=== PATIENT | female | born 1945 | race Caucasian/White ===

== ENCOUNTER 2018-03-30 21:29 | Emergency (ER) | payer MEDICARE, OTHER, SELFPAY ==
[2018-03-30 21:38] VITALS: BP 184/96; PULSE 75; RESP 17; O2SAT 100
--- NOTE | 2018-03-30 21:40 | DI.RAD.S_ITS ---
PROCEDURE: XR CHEST 1V INDICATIONS: chest pain TECHNIQUE: One view of the chest was acquired. COMPARISON: None. FINDINGS: Surgical changes and devices: Surgical clips projecting at the left base of neck.. Lungs and pleura: No pleural effusions or pneumothorax. Scattered scarring/atelectasis. No acute consolidation.. Mediastinum: Mediastinal contours appear normal. Heart size is normal. Bones and chest wall: No suspicious bony lesions. Overlying soft tissues appear unremarkable. Dextroscoliosis centered at the L1 level. IMPRESSION: No acute disease. Mild scattered scarring/atelectasis Dictated by: Alexandro Gu M.D. on 03/30/2018 at 22:07 Approved by: Alexandro Gu M.D. on 03/30/2018 at 22:09
--- NOTE | 2018-03-30 21:52 | ED_ITS ---
HPI - Chest Pain General Chief Complaint: Chest Pain Stated Complaint: CHEST PAIN AND TINGLING RIGHT ARM Time Seen by Provider: 03/30/18 21:51 Source: patient Mode of arrival: ambulatory Limitations: no limitations History of Present Illness HPI narrative: The patient was on her boat, cleaning about 50 min prior to arrival. She developed substernal chest pain radiating to the right arm. There is no associated dyspnea, weakness or dizziness. The pain is 5/10 on a 1- 10 scale. She has had similar prior symptoms, she has a prior AR with blockage of the circumflex artery. She underwent catheterization and the vessel was opened with a stent. She takes Plavix, she is on Lopressor for hypertension. She has no history of diabetes, hyperlipidemia, and she is a nonsmoker. Her father has a history of CAD. She has no recent illness. She has no cough or dyspnea. Current discomfort is very similar to the event when she had the AR. Related Data Home Medications Medication Instructions Recorded Confirmed CALCIUM CITRATE/VITAMIN D3 (Gnp 2 tab PO Q DAY #0 10/21/12 Calcium Citrate-Vit D Tab) aspirin 81 mg PO QDAY #0 03/23/17 Previous Rx's Medication Instructions Recorded Clopidogrel Hydrogen Sulfate 75 mg PO QDAY #90 10/21/12 (PLAVIX) metoprolol tartrate 25 mg PO BID #180 01/29/13 cyclobenzaprine 5 mg PO Q6HP PRN #30 tab 03/23/17 Allergies Allergy/AdvReac Type Severity Reaction Status Date / Time No Known Drug Allergies Allergy Verified 03/30/18 23:39 Review of Systems Review of Systems All systems reviewed & are unremarkable except as noted in HPI and below Constitutional Reports as per HPI, Denies chills, Denies fatigue, Denies fever(s), Denies frequent falls and Denies malaise ENT Ears, Nose, Mouth, and Throat: Denies change in voice, Denies dizziness and Denies sore throat Cardiovascular Reports chest pain with activity, Denies irregular heart rhythm, Denies lightheadedness, Denies palpitations, Denies dyspnea and Denies orthopnea Respiratory Denies cough, Denies dyspnea and Denies wheezing Gastrointestinal Gastrointestinal: Denies abdominal pain, Denies change in bowel habits, Denies diarrhea, Denies nausea and Denies vomiting Musculoskeletal Denies back pain and Denies numbness Integumentary/Breasts Denies erythema and Denies rash Neurologic Denies behavioral changes, Denies confusion, Denies dizziness, Denies frequent falls and Denies numbness Psychiatric Denies behavioral changes and Denies confusion Endocrine Denies fatigue and Denies palpitations Allergic/Immunologic Denies wheezing PFSH Medical History CAD (coronary artery disease) of artery bypass graft (Acute) Fibromuscular dysplasia (Acute) Hypertension (Acute) Surgical History H/O cardiac catheterization (Acute) Social History Smoking Status: Never smoker Exam Initial Vital Signs Initial Vital Signs: Vital Signs Pulse Rate 75 03/30/18 21:38 Respiratory Rate 17 03/30/18 21:38 Blood Pressure 184/96 H 03/30/18 21:38 Pulse Oximetry 100 03/30/18 21:38 Const General: cooperative, healthy appearing and well developed Nutritional Appearance: well nourished Orientation: alert, awake, oriented x3 and not confused HENMT Head: normocephalic and atraumatic Mouth: oral mucosae normal and moist mucous membranes Throat: posterior oropharynx normal Eyes General: appearance normal, both eyes and all related structures Eyelids: eyelids normal Conjunctivae: conjunctivae normal Sclera: sclerae normal Pupils: PERRL EOM: EOM intact bilaterally Neck Neck: No JVD Chest Chest: No tenderness Resp Effort & Inspection: normal respiratory effort, able to speak in complete sentences, no respiratory distress and no use of accessory muscles Auscultation: clear to auscultation bilaterally, no rales, no rhonchi and no wheezes Cardio Rate: regular rate Rhythm: regular rhythm Heart Sounds: no click, no gallops, no murmurs and no rubs Pulses: normal peripheral pulses GI Inspection: non-distended Palpation: soft, no hepatosplenomegaly, No guarding, No pulsatile mass and No tender Auscultation: normal bowel sounds Back/Spine/Pelvis Back: No CVA tenderness Skin General: no rashes or lesions noted, No jaundice and No petechiae Neuro General: alert, oriented x3, gait normal and no focal motor deficits Speech: speech normal Extrem General: no clubbing, cyanosis or edema and no calf tenderness Course Hospital Course: The patient's initial chest discomfort improved after receiving topical nitroglycerin and the 1st dose of metoprolol. The pain never quite resolved until she received Morphine. The initial EKG showed nonspecific changes, perhaps flipped ST segments in the inferior leads. The chest discomfort would wax and wane, but was very minor. Due to the ongoing back discomfort labs and EKG were repeated. The 2nd EKG is unchanged, showing flipped ST segments in III and AVF, but no obvious acute ST elevations. However the 2nd troponin is positive, increasing from < 0.012 to 0.375. At this moment she is once again pain-free. Heparin bolus and heparin drip have been added to the treatment regimen. I discussed her care with Dr. Abdul, the on-call systems management consultant at [facility]. He agreed with our management, he wants the patient transported to [facility] under the care of the hospitalist. He anticipates cardiac catheterization in the morning if all goes well. Orders Ordered: ED Orders 03/30/18 21:38 Complete Blood Count AUTO DIFF Stat Comprehensive Metabolic Panel Stat Lipase Stat Troponin & CK Cardiac Panel Stat 03/30/18 21:40 XR chest 1V Stat EKG-12 Lead Stat 03/30/18 23:26 EKG-12 Lead Stat 03/30/18 23:52 Troponin I Stat 03/31/18 01:40 Partial Thromboplastin Time Stat Prothrombin Time INR Stat Sodium Chloride (Normal Saline 0.9%) 1,000 mls @ 150 mls/hr IV CONT PRISCILLA Last Admin: 03/30/18 22:18 Dose: 150 mls/hr Admin: 03/30/18 22:04 Dose: Sodium Chloride (Normal Saline 0.9%) 1,000 mls @ 150 mls/hr IV CONT PRISCILLA Last Admin: 03/30/18 22:19 Dose: Heparin Sodium/Dextrose (Heparin Drip) 25,000 unit in 500 mls @ 13.281 mls/hr IV CONT PRISCILLA; Protocol Last Infusion: 03/31/18 03:42 Dose: 12.64 units/kg/hr, 14 mls/hr Infusion: 03/31/18 02:40 Dose: 0 units/kg/hr, 0 mls/hr Admin: 03/31/18 01:28 Dose: 18.07 units/kg/hr, 20 mls/hr Discontinued Medications Aspirin (Aspirin Chew) 324 mg PO NOW ONE Stop: 03/30/18 21:41 Last Admin: 03/30/18 21:57 Dose: Aspirin (Aspirin Chew) 324 mg PO NOW ONE Stop: 03/31/18 01:01 Last Admin: 03/31/18 01:07 Dose: 324 mg Heparin Sodium (Porcine) (Heparin) 4,000 unit IV NOW ONE Stop: 03/31/18 00:59 Last Admin: 03/31/18 01:07 Dose: 4,000 unit Metoprolol Tartrate (Lopressor) 5 mg IV NOW ONE Stop: 03/30/18 22:01 Last Admin: 03/30/18 22:19 Dose: Metoprolol Tartrate (Lopressor) 5 mg IV Q5M PRISCILLA Stop: 03/30/18 22:26 Last Admin: 03/30/18 22:33 Dose: Admin: 03/30/18 22:28 Dose: Admin: 03/30/18 22:19 Dose: 5 mg Metoprolol Tartrate (Lopressor) 5 mg IV NOW ONE Stop: 03/31/18 00:01 Last Admin: 03/31/18 00:01 Dose: 5 mg Metoprolol Tartrate (Lopressor) 5 mg IV NOW ONE Stop: 03/31/18 00:19 Last Admin: 03/31/18 00:19 Dose: 5 mg Morphine Sulfate (Morphine) 2 mg IV NOW ONE Stop: 03/30/18 23:27 Last Admin: 03/30/18 23:39 Dose: 2 mg Nitroglycerin (Nitro-Bid) 1 inch TOP NOW ONE Stop: 03/30/18 22:01 Last Admin: 03/30/18 22:19 Dose: 1 inch Vital Signs - 8 hr 03/30/18 21:38 03/30/18 22:27 03/30/18 23:45 Pulse Rate 75 60 67 Respiratory Rate 17 19 Blood Pressure 184/96 H 158/88 H Blood Pressure [Left Arm] 137/76 H Pulse Oximetry 100 98 03/31/18 00:09 03/31/18 01:22 03/31/18 01:23 Pulse Rate 61 65 65 Respiratory Rate 15 19 19 Blood Pressure 158/88 H Blood Pressure [Left Arm] 125/68 H 140/76 H Pulse Oximetry 97 99 99 03/31/18 02:11 03/31/18 03:55 Pulse Rate 63 66 Respiratory Rate 14 18 Blood Pressure Blood Pressure [Left Arm] 95/75 150/99 H Pulse Oximetry 96 95 MDM - Chest Pain Medical Records Data Attestation: I reviewed the patient's medical records. Lab Data Attestation: I reviewed the patient's lab results. Result diagrams: 03/30/18 21:38 03/30/18 21:38 Lab Results 03/30/18 03/30/18 03/30/18 Range/Units 21:38 21:38 23:52 WBC 5.9 (4.5-11.0) X10^3/uL RBC 4.62 (4.0-5.2) X10^6/uL Hgb 14.2 (12.0-16.0) g/dL Hct 41.7 (36-46) % MCV 90.3 (80-100) fL MCH 30.7 (26-34) PG MCHC 34.1 (30-36) % RDW 13.5 (11.6-14.8) % Plt Count 110 L (150-400) X10^3/uL Neut % (Auto) 39.2 L (50-75) % Lymph % (Auto) 40.7 H (25-40) % [place] % (Auto) 19.0 H (3-14) % Eos % (Auto) 0.4 L (2-4) % Baso % (Auto) 0.7 (0-2) % Neut # (Auto) 2300 L (9255-4043) /uL PT (10.1-12.7) SECONDS INR (0.9-1.3) APTT (26.4-36.2) SECONDS Sodium 141 (137-145) mmol/L Potassium 3.0 L (3.4-5.1) mmol/L Chloride 98 (98-107) mmol/L Carbon Dioxide 30 (22-32) mmol/L BUN 21 H (7-17) mg/dL Creatinine 0.80 (0.52-1.04) mg/dL Estimated GFR > 60.0 (>60) mL/min BUN/Creatinine Ratio 26.3 H (6-22) Glucose 106 (80-110) mg/dL Calcium 9.8 (8.4-10.2) mg/dL Total Bilirubin 0.7 (0.2-1.3) mg/dL AST 34 (14-36) IU/L ALT 28 (9-52) IU/L Alkaline Phosphatase 88 (38-126) U/L Total Creatine Kinase 68 (30-135) U/L Troponin I < 0.012 0.375 H* (0.01-0.034) ng/mL Total Protein 8.0 (6.3-8.2) g/dL Albumin 5.0 (3.5-5.0) g/dL Globulin 3.0 (1.7-4.1) g/dL Albumin/Globulin Ratio 1.7 (1.0-2.8) Lipase 92 (23-300) U/L 03/31/18 Range/Units 01:40 WBC (4.5-11.0) X10^3/uL RBC (4.0-5.2) X10^6/uL Hgb (12.0-16.0) g/dL Hct (36-46) % MCV (80-100) fL MCH (26-34) PG MCHC (30-36) % RDW (11.6-14.8) % Plt Count (150-400) X10^3/uL Neut % (Auto) (50-75) % Lymph % (Auto) (25-40) % [place] % (Auto) (3-14) % Eos % (Auto) (2-4) % Baso % (Auto) (0-2) % Neut # (Auto) (3144-7634) /uL PT 12.4 (10.1-12.7) SECONDS INR 1.1 (0.9-1.3) APTT 220 H* (26.4-36.2) SECONDS Sodium (137-145) mmol/L Potassium (3.4-5.1) mmol/L Chloride (98-107) mmol/L Carbon Dioxide (22-32) mmol/L BUN (7-17) mg/dL Creatinine (0.52-1.04) mg/dL Estimated GFR (>60) mL/min BUN/Creatinine Ratio (6-22) Glucose (80-110) mg/dL Calcium (8.4-10.2) mg/dL Total Bilirubin (0.2-1.3) mg/dL AST (14-36) IU/L ALT (9-52) IU/L Alkaline Phosphatase (38-126) U/L Total Creatine Kinase (30-135) U/L Troponin I (0.01-0.034) ng/mL Total Protein (6.3-8.2) g/dL Albumin (3.5-5.0) g/dL Globulin (1.7-4.1) g/dL Albumin/Globulin Ratio (1.0-2.8) Lipase (23-300) U/L Imaging Data Chest x-ray: Radiologist's impression: Scattered scarring/atelectasis, no acute findings. ECG Data Attestation: I personally reviewed and interpreted this ECG as follows: (EKG: Normal sinus rhythm at [address] depression in 3 and AVF. No acute ST elevation.) Critical Care Time Critical Care Time: Yes Total Critical Care Time: 40 Attestation: In addition to the initial patient care, repeat evaluations were performed. Repeat testing including EKG and lab testing was done and evaluated. Multiple medication decisions were made in the course for treatment. I consulted both Cardiology, Dr. Abdul, and [facility] hospitalist, Dr. Ching. The patient will be transferred later this morning. Discharge Plan Departure Patient Disposition: [facility] Clinical Impression: Non-ST elevated myocardial infarction (non-STEMI) Prescriptions: No Action CALCIUM CITRATE/VITAMIN D3 (Gnp Calcium Citrate-Vit D Tab) 2 tab PO Q DAY Qty: 0 RF: 0 Clopidogrel Hydrogen Sulfate (PLAVIX) 75 mg PO QDAY Qty: 90 RF: 3 metoprolol tartrate 25 MG tablet 25 mg PO BID Qty: 180 RF: 2 aspirin 81 MG tablet,chewable 81 mg PO QDAY Qty: 0 RF: 0 cyclobenzaprine 5 MG tablet 5 mg PO Q6HP PRNQty: 30 RF: 1
[2018-03-30 21:56] LABS: Add Manual Diff / Slide Review NO; Basophils Percent Auto 0.7 % (0-2); Eosinophils Percent Auto 0.4 % (2-4); Hematocrit 41.7 % (36-46); Hemoglobin 14.2 g/dL (12.0-16.0); Lymphocytes Percent Auto 40.7 % (25-40); Mean Corpuscular HGB Conc 34.1 % (30-36); Mean Corpuscular Hemoglobin 30.7 PG (26-34); Mean Corpuscular Volume 90.3 fL (80-100); Neutrophils Absolute Auto 2300 /uL (3000-5900); Neutrophils Percent Auto 39.2 % (50-75); Platelet Count 110 X10^3/uL (150-400); Red Blood Cell Count 4.62 X10^6/uL (4.0-5.2); Red Cell Distribution Width 13.5 % (11.6-14.8); White Blood Cell Count 5.9 X10^3/uL (4.5-11.0)
[2018-03-30 22:01] LABS: Alanine Aminotransferase 28 IU/L (9-52); Albumin Globulin Ratio 1.7 (1.0-2.8); Alkaline Phosphatase 88 U/L (38-126); Aspartate Aminotransferase 34 IU/L (14-36); BUN Creatinine Ratio 26.3 (6-22); Bilirubin Total 0.7 mg/dL (0.2-1.3); Blood Urea Nitrogen 21 mg/dL (7-17); Calcium 9.8 mg/dL (8.4-10.2); Carbon Dioxide 30 mmol/L (22-32); Chloride 98 mmol/L (98-107); Creatine Kinase 68 U/L (30-135); Estimated Glomerular Filt Rate > 60.0 mL/min (>60); Glucose 106 mg/dL (80-110); HEMOLYSIS < 15 (0-50); Lipase 92 U/L (23-300); Sodium 141 mmol/L (137-145)
[2018-03-30 22:16] LABS: Troponin I < 0.012 ng/mL (0.01-0.034)
[2018-03-30] MEDS: SODIUM CHLORIDE 0.9% 1,000 ML 150 ML IV (22:18)
[2018-03-30] MEDS: METOPROLOL TARTRATE 5 MG/5 ML INJ IV (22:19)
[2018-03-30] MEDS: NITROGLYCERIN OINT 1 INCH/GM OINT...G. TOP (22:19)
[2018-03-30 22:27] VITALS: BP 158/88; PULSE 60
--- NOTE | 2018-03-30 22:28 | PC.NURSE ---
pts HR 60 per provider second dose of metoprolol not given.
[2018-03-30] MEDS: MORPHINE 2 MG/ML INJ IV (23:39)
[2018-03-30 23:45] VITALS: BP 137/76; PULSE 67; RESP 19; O2SAT 98
[2018-03-31] MEDS: METOPROLOL TARTRATE 5 MG/5 ML INJ IV ×2 (00:01→00:19)
[2018-03-31 00:09] VITALS: BP 125/68; PULSE 61; RESP 15; O2SAT 97
[2018-03-31 00:55] LABS: Troponin I 0.375 ng/mL (0.01-0.034)
[2018-03-31] MEDS: ASPIRIN 81 MG TAB 324 MG PO (01:07)
[2018-03-31] MEDS: HEPARIN 5,000 UNIT/ML VIAL 4000 UNIT IV (01:07)
[2018-03-31 01:22] VITALS: BP 140/76; PULSE 65; RESP 19; O2SAT 99
[2018-03-31 01:23] VITALS: BP 158/88; PULSE 65; RESP 19; O2SAT 99
[2018-03-31] MEDS: HEPARIN DRIP 25,000 UNIT/500 ML IV.SOLN 20 UNIT IV (01:28)
[2018-03-31 01:58] LABS: INR 1.1 (0.9-1.3)
[2018-03-31 02:11] VITALS: BP 95/75; PULSE 63; RESP 14; O2SAT 96
[2018-03-31 02:19] LABS: Prothrombin Time 12.4 SECONDS (10.1-12.7)
--- NOTE | 2018-03-31 02:19 | PC.NURSE ---
Pt with [address] Snyder notified- no new orders. Pt asymptomatic. BP stable.
[2018-03-31 02:29] LABS: PTT Partial Thromboplastin Tim 220 SECONDS (26.4-36.2)
--- NOTE | 2018-03-31 02:42 | PC.NURSE ---
PTT critical at 220. Dr Snyder notified, Heparin gtt stopped per protocol.
[2018-03-31 03:55] VITALS: BP 150/99; PULSE 66; RESP 18; O2SAT 95
[2018-03-31 04:17] VITALS: BP 141/75; PULSE 65; RESP 15; O2SAT 95
--- NOTE | 2018-03-31 04:49 | PC.NURSE ---
Report called to MEGAN Guajardo at [facility] [phone]
== END 2018-03-31 04:20 | disposition short-term general hospital (02) ==
PROVIDERS: Emergency Provider Emergency Medicine; Family Provider Family Medicine; PCP Family Medicine
DX: I21.4 Non-ST elevation (NSTEMI) myocardial infarction (principal)
CPT/HCPCS: 36415; 36591; 71045; 80053; 81003; 82550; 82553; 83690; 84484; 85025; 85610; 85730; 93005; 93010; 96361; 96365; 96366; 96375; 96376; 99285; 99291; 99292; J1644; J2270

== ENCOUNTER → 2020-05-16 08:38 | Outpatient (CLI) | payer MEDICARE, OTHER, SELFPAY ==
[2020-05-17 14:21] LABS: COVID19 Sendout Not Detected (Not Detect)
== END ==
PROVIDERS: Family Provider Family Medicine; PCP Family Medicine; Visit Provider Physician Assistant
DX: Z11.59 Encounter for screening for other viral diseases (principal)
CPT/HCPCS: 87635

== ENCOUNTER 2020-05-19 07:31 | Day surgery (SDC) | payer MEDICARE, OTHER, SELFPAY ==
[2020-05-19] VITALS (7 sets, daily range): BP systolic 101–131; BP diastolic 60–76; PULSE 64–75; RESP 10–16; TEMP 36.1–37.2; O2SAT 95–99; BMI 20.2
[2020-05-19] MEDS: SODIUM CHLORIDE 0.9% 1,000 ML 200 ML IV (08:06)
--- NOTE | 2020-05-19 08:25 | P.HP_ITS ---
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 She has had TIAs, heart attack in 2004 and a heart attack about 18 months ago. She is on Plavix 75 mg daily. She has had a prior colonoscopy in 2012 on which she was found to have a small lipoma in the rectum, and a few scattered diverticula, with no polyps noted. She recalls being told that she had a polyp, but on the scope report there is no polyp noted. I think she may be referring to the lipoma. She comes in to be seen because about 2 weeks ago she had 2-3 days of blood in the stool. This is associated with some stomach cramps and constipation. She denies having hard stools or any rectal pain. She says she has some stomach cramps which improved with passing stool. She took MiraLax at the time to help resolve her constipation. She then started having watery stools. She occasionally has some anal leakage, when her stool is watery. She denies sitting on the toilet for more than 2 minutes to have a bowel movement, denies swelling or prolapse, and denies any external hemorrhoids. She denies a family history of colon polyps or colon cancers. She denies any unexplained weight loss. She has not had any other episodes of abdominal pain or bleeding. The bleeding was self-limited and stopped after about 3 days. She notes easy bruising. Interval events: The patient is back to the ER jewel corner brushing machine operator to give permission for her to be off of her Plavix for a week for this procedure, and gave her clearance to go ahead with the procedure under sedation. She had some or rectal bleeding after her visit with me, but it has slowed down since then. ROS: Review of systems is positive for venous stasis skin changes in her left leg, swelling of the legs, abdominal pain, change in bowel habits, blood in the stool, joint pain, joint swelling, anxiety, easy bruising. Thirteen system review is otherwise negative other than as mentioned below and in HPI. PE: GENERAL: Well groomed and cooperative. Appears stated age. Answers questions promptly and appropriately. Vital signs noted. HENT: Normocephalic, atraumatic. Hearing intact. EYES: Conjunctiva pink, sclera white, no periorbital swelling. CARDIOVASCULAR: Regular rate. No pedal edema. RESPIRATORY: Non-tachypneic, breathing comfortably on room air. GASTROINTESTINAL: Abdomen soft and non-distended MUSCULOSKELETAL: Equal tone and mass bilaterally. SKIN: Scattered bruises, left lower extremity venous stasis changes. Warm, dry, soft, appropriate color for ethnicity. No other lesions, rashes, or wounds. NEURO: Alert and Oriented X 3. No gross sensory deficits, or cognitive issues. PSYCH: Appropriate affect and mood. Patient History Medical History CAD (coronary artery disease) of artery bypass graft (Acute) Fibromuscular dysplasia (Acute) Hx of cataract (Acute) Hypertension (Acute) Surgical History H/O cardiac catheterization (Acute) History of hip replacement (Acute) Hx of angioplasty (Acute) Hx of breast augmentation (Acute) Hx of heart artery stent (Acute) Family & Social History Family History Father Hypertension Stroke Social History: household members spouse Tobacco & Substance use: Smoking Status Never smoker alcohol intake current alcohol intake frequency a few times a week Substance Use Type does not use Meds Home Medications and Allergies Home Medications Medication Instructions Recorded Confirmed Type Clopidogrel Hydrogen Sulfate 75 mg PO QDAY #90 10/21/12 05/19/20 Rx (PLAVIX) rosuvastatin 1 tab PO SEEINSTR 02/27/19 05/19/20 History Juice Plus PO 11/11/19 11/11/19 History metoprolol tartrate 25 mg tablet 50 mg PO DAILY tab 11/11/19 History Allergies Allergy/AdvReac Type Severity Reaction Status Date / Time No Known Drug Allergies Allergy Verified 05/19/20 07:41 Exam Vital Signs (past 8 hours): - 05/19/20 07:57 Temperature 97.5 F L Pulse Rate 75 Respiratory Rate 16 Blood Pressure 131/76 Pulse Oximetry 99 Oxygen Delivery Method Room Air Assessment & Plan Assessment and plan (1) Rectal bleeding: Status: Acute Assessment & Plan narrative: Risks and benefits of screening colonoscopy and possible polypectomy were discussed with the patient including risk of bleeding, perforation, need for additional procedures, risks of anesthesia. The patient desires to proceed with the colonoscopy procedure. COVID-19 COVID-19 status: Negative Result date/Date tested (Pos, Neg/Pending): 05/16/20 Time Spent With Patient Time with patient: 15-24 minutes Quality VTE Deep Vein Thrombosis/Pulmonary Embolism Present on Admission: No
--- NOTE | 2020-05-19 08:28 | P.OP.ENDO_ITS ---
Operative Date/Time/Diagnoses Date of procedure: 05/19/20 Time of procedure: 08:28 Pre-op diagnosis: Rectal bleeding Post-op diagnosis: other (Extensive diverticulosis in the left and sigmoid colon without signs of active diverticulitis or active bleeding, moderate grade 2-3 i nternal hemorrhoids without stigmata of bleed) Procedure & Clinicians Study performed: Colonoscopy Procedural sedation performed by the endoscopist Indications: Rectal bleed Surgeon: Milagro Enriquez Procedure Notes SCOAP/Timeout: Performed Procedure in detail: The patient was brought to the room and placed in left lateral decubitus position with all bony prominences padded. A time-out was performed and then the patient was given procedural sedation starting with 2 mg of Versed and 100 mcg of fentanyl. 3 mg of Versed and 150 micro g of fentanyl were given for the entire procedure. Vitals were monitored throughout the procedure and remained stable. Once adequately sedated, the procedure was begun. A rectal exam was performed revealing no abnormalities. The colonoscope was then introduced to the rectum and advanced to the cecum in the usual fashion. The cecum was identified by the appendiceal orifice, the mucosal tri- fold, and the ileocecal valve. The scope was then retracted while rotating side to side and examining each mucosal fold. Extensive diverticulosis was seen through the descending and sigmoid colon without signs of active diverticulitis or bleeding. At the conclusion of the procedure retroflexion was performed and moderate grade 2-3 internal hemorrhoids without stigmata of bleeding were seen. The scope was then withdrawn from the rectum the procedure was concluded. The patient tolerated the procedure well and was transferred to the PACU in stable condition. Scope withdrawal time: 8 Sedation minutes: 13 Findings: diverticulosis (Extensive through descending and sigmoid colon without active diverticulitis or bleeding) and internal hemorrhoids (Grade 2-3 without active bleeding) Specimen(s): none sent Complications: none Impression: The source of rectal bleeding is likely the internal hemorrhoids, or possibly the diverticula Post-procedure Recommendations: Colonscopy in 10 years and Other recommendation (Use a fiber supplement to help bulk up the stool, make it easier to pass, and prevent exacerbation of the hemorrhoids or diverticulosis) Follow up: as needed Disposition: PACU
[2020-05-19] MEDS: fentaNYL 250 MCG/5 ML INJ IV (08:38)
[2020-05-19] MEDS: MIDAZOLAM 5 MG/5 ML VIAL IV (08:38)
== END 2020-05-19 09:46 | disposition home or self-care (01) ==
PROVIDERS: Family Provider Family Medicine; PCP Family Medicine; Referring Provider Family Medicine; Visit Provider Surgery
PROC: 0DJD8ZZ Inspection of Lower Intestinal Tract, Via Natural or Artificial Opening Endoscopic (ICD-10-PCS; CPT 45378; principal; 2020-05-19 08:30)
DX: K62.5 Hemorrhage of anus and rectum (principal); K57.30 Diverticulosis of large intestine without perforation or abscess without bleeding; K64.1 Second degree hemorrhoids
CPT/HCPCS: 45378; J2250; J3010

== ENCOUNTER → 2021-01-09 16:00 | Outpatient (CLI) | payer MEDICARE, OTHER, SELFPAY ==
--- NOTE | 2021-01-09 | DI.ECHO.S_ITS ---
[place] [facility]---------+ [facility] +---------+ : : [address] : : : : [id number] : : : : Phone: [phone] Echocardiogram Report + + :Name: DIPTI ALCANTARA Study Date: 01/09/2021 Height: 62 in : :[facility] ReadingLocation: Weight: 125 lb : : Gender: Female BSA: 1.6 m2 : :: 1945 Age: 75 yrs BP: 162/79 mmHg: :Reason For Study: ATHEROSCLEROTIC HEART DISEASE : :Ordering Physician: SUSAN, : :CACHORRO Performed By: Franny Price : :Referring: CACHORRO TEMPLE : + + Interpretation Summary 1) Normal left ventricular thickness, size, wall motion, and systolic function (EF 60-65%). 2) Normal right ventricular size and function. 3) There is mild to moderate tricuspid regurgitation. 4) The right ventricular systolic pressure is estimated to be at least 43 mmHg based on an estimated right atrial pressure of 8 mm Hg. 5) Hypertension present during the study (BP 162/79mmHg). 6) No prior Echo available for comparison. Procedure: A two-dimensional transthoracic echocardiogram with color flow and Doppler was performed. The study quality was technically adequate. There is no prior echocardiogram noted for this patient. The patient was in sinus bradycardia with heart rates between 52-68 bpm during the exam. Left Ventricle: The left ventricle is normal in size and wall thickness. The ejection fraction is estimated to be 60-65%. Left ventricular wall motion is normal. Diastolic parameters suggest a pseudonormalization pattern, consistent with probable elevated filling pressures. Right Ventricle: The right ventricle is normal in size and function. Atria: The left atrium is moderately dilated. Right atrial size is normal. There is no Doppler evidence for an interatrial shunt. Mitral Valve: The mitral valve leaflets appear mildly thickened, but open well. There is mild mitral annular calcification. There is mild mitral regurgitation. Aortic Valve: The aortic valve is trileaflet. The aortic valve opens well. There is no aortic valve stenosis. There is trace aortic regurgitation. Tricuspid Valve: The tricuspid valve is normal in structure and function. There is mild to moderate tricuspid regurgitation. The right ventricular systolic pressure is estimated to be at least 43 mmHg based on an estimated right atrial pressure of 8 mm Hg. Pulmonic Valve: The pulmonic valve is not well visualized. There is no pulmonic valvular regurgitation. Great Vessels: The aortic root is normal size. The ascending aorta is at the upper limits of normal in size. The IVC is of normal diameter and collapses less than 50% with a sniff. This suggests a right atrial pressure of 8 mm Hg. Pericardium/ Pleura There is no pericardial effusion. There is no pleural effusion. MMode/2D Measurements & Calculations LVIDd: 4.4 cm LVOT diam: 1.9 cm LVIDs: 2.8 cm Ao root diam: 3.7 cm FS: 36.0 % asc Aorta Diam: 3.4 cm EPSS: 0.37 cm Ao Arch Diam (Prox Trans): 2.8 cm IVSd: 0.71 cm LVPWd: 0.71 cm LV baird. diameter/BSA (cm/m^2): 2.8 LV sys. diameter/BSA (cm/m^2): 1.8 LA A2 area: 19.8 cm2 RA long axis: 5.2 cm LA A4 area: 19.1 cm2 RA area: 16.3 cm2 LA length (vol): 5.2 cm RA vol: 43.4 ml LA vol: 61.7 ml RA : 27.7 ml/m2 LA vol index: 39.4 ml/m2 IVC diam: 2.2 cm RVD1 (basal): 2.8 cm TAPSE: 1.7 cm Doppler Measurements & Calculations Ao V2 max: 136.2 cm/sec LVOT Max Bar: 121.9 cm/sec Ao V2 mean: 90.3 cm/sec LV V1 max P.9 mmHg Ao max P.4 mmHg LV V1 VTI: 27.7 cm Ao mean P.7 mmHg GAURAV(I,D): 2.8 cm2 Ao V2 VTI: 28.9 cm GAURAV(V,D): 2.6 cm2 sev ratio: 0.96 GAURAV indexed to BSA (cm^2/m^2): 1.8 MV E max bar: 73.2 cm/sec TR max bar: 297.0 cm/sec MV A max bar: 75.0 cm/sec TR max P.3 mmHg MV E/A: 0.98 PA pr(Accel): 22.5 mmHg Med Peak E' Bar: 3.9 cm/sec E/E' med: 18.9 Lat Peak E' Bar: 7.1 cm/sec E/E' lat: 10.3 E/e' average: 14.6 MV dec time: 0.31 sec SV(LVOT): 80.5 ml Reading Physician:10:56 AM
== END ==
PROVIDERS: Family Provider Family Medicine; PCP Family Medicine; Referring Provider Internal Medicine Cardiovascular Disease; Visit Provider Internal Medicine Cardiovascular Disease
DX: I08.1 Rheumatic disorders of both mitral and tricuspid valves (principal); I25.10 Atherosclerotic heart disease of native coronary artery without angina pectoris; I25.2 Old myocardial infarction
CPT/HCPCS: 93306

== ENCOUNTER → 2021-01-12 07:29 | Outpatient (CLI) | payer MEDICARE, OTHER, SELFPAY ==
--- NOTE | 2021-01-12 | DI.RAD.S_ITS ---
PROCEDURE: XR DEXA AXIAL SKELETON INDICATIONS: Age-related osteoporosis COMPARISON: None. FINDINGS: This blank DEXA report has been sent in error by the PACS system. The correct and complete report will be forthcoming in 1-2 days. Thank you for your patience and understanding. Dictated by: Nery Dillon MD, PhD on 01/12/2021 at 17:09 Approved by: Nery Dillon MD, PhD on 01/12/2021 at 17:09
== END ==
PROVIDERS: Family Provider Family Medicine; PCP Family Medicine; Referring Provider Family Medicine; Visit Provider Family Medicine
DX: M85.832 Other specified disorders of bone density and structure, left forearm (principal); Z78.0 Asymptomatic menopausal state
CPT/HCPCS: 77080

== ENCOUNTER 2021-08-16 15:26 | Emergency (ER) | payer MEDICARE, OTHER, SELFPAY ==
[2021-08-16 15:30] VITALS: BP 171/86; PULSE 66; RESP 14; TEMP 36.7; O2SAT 95; BMI 22.8
--- NOTE | 2021-08-16 15:34 | DI.RAD.S_ITS ---
PROCEDURE: XR RIBS RT MIN 3V W CXR 1V INDICATIONS: fall with rib pain TECHNIQUE: Two views of the right ribs were acquired, along with a single view chest. COMPARISON: None. FINDINGS: Surgical changes and devices: None. Bones and chest wall: Dedicated rib images are degraded by respiratory motion. There is a possible minimally displaced fracture at the anterolateral aspect of the right 8th rib. No suspicious bony lesions. Overlying soft tissues appear unremarkable. Dextroconvex curvature of the lumbar spine is seen with multilevel degenerative changes. Degenerative changes are also seen in the right shoulder. Lungs and pleura: No pleural effusions or pneumothorax. Lungs appear clear. Mediastinum: Mediastinal contours appear normal. Heart size is normal. IMPRESSION: Suspected minimally displaced fracture of the anterolateral right 8th rib. Recommend correlation for point tenderness. No pneumothorax. Dictated by: Orlando Jose M.D. on 08/16/2021 at 15:55 Approved by: Orlando Jose M.D. on 08/16/2021 at 15:59
--- NOTE | 2021-08-16 15:35 | ED.FALL ---
HPI - Fall General Chief Complaint: Fall Stated Complaint: fell friday and might of hurt her torso sore Time Seen by Provider: 08/16/21 15:34 History of Present Illness HPI Narrative: 75F nonsmoker with history of myocardial infarction and prior stroke presents with a chief complaint of rib pain after a fall 3 days ago. She states that she had been in her normal state of health when she was walking [place] stairs [place], she misstepped and fell the bottom 3 stairs onto her right-sided ribs. She did not think anything was significantly wrong initially but since then has had increasing sharp and stabbing, reproducible right lateral rib pain but also has developed some pain that reaches across to under her left ribs. She states that it hurts to take a big deep breath. She denies any head or neck pain or injury. She denies nausea or vomiting. She denies any fever chills. She has had no cough or hemoptysis. She states she is most concerned about a discomfort in her epigastrium that starts after sitting for a period of time and seems to improve upon standing. This pain is not reproducible by motion or palpation and seems to come and go Related Data Home Medications Medication Instructions Recorded Confirmed rosuvastatin 1 tab PO SEEINSTR 02/27/19 05/19/20 Juice Plus PO 11/11/19 11/11/19 metoprolol tartrate 25 mg tablet 50 mg PO DAILY tab 11/11/19 Previous Rx's Medication Instructions Recorded Clopidogrel Hydrogen Sulfate 75 mg PO QDAY #90 10/21/12 (PLAVIX) Allergies Allergy/AdvReac Type Severity Reaction Status Date / Time No Known Drug Allergies Allergy Verified 08/16/21 15:35 Review of Systems Review of Systems Narrative: GENERAL: Denies chills, fatigue, malaise, fever, sweats. HEENT: Denies sinus pain, ear pain, sore throat, difficulty swallowing, dizziness. RESPIRATORY: Denies dyspnea, cough, wheezing, hemoptysis, sputum. CARDIOVASCULAR: See HPI GASTROINTESTINAL: Denies nausea, vomiting, abdominal pain, diarrhea, constipation, melena. : Denies dysuria, frequency, incontinence, hematuria, urinary retention. MUSCULOSKELETAL: See HPI SKIN: Denies rash, skin lesions, or other NEUROLOGIC: Denies weakness, headache, numbness, change in speech, confusion, seizures, incoordination. PSYCHIATRIC: No concerning psychosocial issues. 12 point review of systems is negative except for those stated above Patient History Medical History (Updated 08/16/21 @ 16:22 by Efren Sevilla DO) CAD (coronary artery disease) of artery bypass graft Fibromuscular dysplasia Hx of cataract Hypertension Surgical History H/O cardiac catheterization History of hip replacement Hx of angioplasty Hx of breast augmentation Hx of heart artery stent Family History Father Hypertension Stroke Social History (Updated 11/11/19 @ 11:03 by Jennifer Saab RN) household members: spouse occupational status: employed Smoking Status: Never smoker alcohol intake: current substance use type: marijuana Smoking Status: Never smoker alcohol intake frequency: a few times a week Substance Use Type: does not use Exam Narrative Exam Narrative: GENERAL: [75 year old patient appears stated age. Well-developed patient, in mild distress. GCS 15 HEAD: Atraumatic. Normocephalic. EYES: Pupils equal round and reactive. Extraocular motions intact. No scleral icterus. No injection or drainage. ENT: Nose without bleeding, purulent drainage. Throat without erythema, tonsillar hypertrophy or exudate. Airway patent. NECK: Trachea midline. Non tender CARDIOVASCULAR: Regular rate and rhythm without murmurs, gallops, or rubs. Right lateral rib pain to palpation, no crepitance, subcu emphysema, erythema, swelling RESPIRATORY: Clear to auscultation. Breath sounds equal bilaterally. No wheezes, rales, or rhonchi. GASTROINTESTINAL: Abdomen soft, non-tender, nondistended. EXTREMITIES: No edema or joint tenderness. BACK: Nontender without deformity or crepitance. No flank tenderness. NEURO: AOx3. SKIN: No rash or erythema of visible areas Initial Vital Signs Initial Vital Signs: Vital Signs Temperature 98.0 F 08/16/21 15:30 Pulse Rate 66 08/16/21 15:30 Respiratory Rate 14 08/16/21 15:30 Blood Pressure 171/86 H 08/16/21 15:30 Pulse Oximetry 95 08/16/21 15:30 Course Course Course Narrative: Extensive discussion with patient after her reassuring history and physical exam. We did talk about more advanced imaging such as a CT scan with IV contrast but given the rather colicky nature of the discomfort in her upper abdomen, lack of reproducibility she would elect to hold off for now. I agree that it is unlikely she would have any clinically significant internal injuries. She has been given extensive return precautions and questions have been answered to her apparent satisfaction Orders Ordered: ED Orders 08/16/21 15:34 XR ribs RT min 3V w CXR1V Stat Vital Signs Vital signs: Vital Signs - 8 hr 08/16/21 15:30 Temperature 98.0 F Pulse Rate 66 Respiratory Rate 14 Blood Pressure 171/86 H Pulse Oximetry 95 MDM - Fall Imaging Data Chest x-ray: Radiologist's Impression: [address] [address] XRay Report Signed Patient: Yolanda Metz MR#: [id number] : 1945 Acct:[id number] Age/Sex: 75 / F Date of Service: 08/16/21 Loc: ED Accession Number: [id number] ?? Procedure: XR ribs RT min 3V w CXR1V Ordering Provider: Efren Sevilla D.O. PROCEDURE:? XR RIBS RT MIN 3V W CXR 1V ? INDICATIONS:? fall with rib pain ? TECHNIQUE:? Two views of the right ribs were acquired, along with a single view chest.? ? COMPARISON:? None. ? FINDINGS:? ? Surgical changes and devices:? None.? ? Bones and chest wall:? Dedicated rib images are degraded by respiratory motion.? There is a possible minimally displaced fracture at the anterolateral aspect of the right 8th rib. ?No suspicious bony lesions.? Overlying soft tissues appear unremarkable.? Dextroconvex curvature of the lumbar spine is seen with multilevel degenerative changes.? Degenerative changes are also seen in the right shoulder. ? Lungs and pleura:? No pleural effusions or pneumothorax.? Lungs appear clear.? ? Mediastinum:? Mediastinal contours appear normal.? Heart size is normal.? ? IMPRESSION:? Suspected minimally displaced fracture of the anterolateral right 8th rib.? Recommend correlation for point tenderness.? No pneumothorax. ? ? Dictated by: Orlando Jose M.D. on 08/16/2021 at 15:55 ? ? Approved by: Orlando Jose M.D. on 08/16/2021 at 15:59 ? Discharge Plan Departure Patient Disposition: Home Clinical Impression: Closed rib fracture Instructions: How to Prevent Falls Activity Restrictions/Additional Instructions: *You have been diagnosed with [right-sided rib pain from a single nondisplaced rib fracture. Your history and physical exam are otherwise very reassuring *What to do: *Please continue to take your regular medications as directed. [ ] New medication prescriptions sent to your pharmacy: [ ] [ ] New medication written as a paper prescription [ x] No new medications given *Please follow up with your primary care provider in 2-3 days, call for an appointment. Let them know you were seen in the Emergency Department and that we ask that you be seen in follow up. We will electronically transmit a record of today's note if your PCP is in our system *Return to Emergency Department if you should have any new, worsening or concerning symptoms, such as [fever greater than 101 F, shaking chills, worsening pain, persistent vomiting or other bothersome symptoms] Prescriptions: No Action rosuvastatin 1 tab PO SEEINSTR 0RF Rx Instructions: unsure of dose Clopidogrel Hydrogen Sulfate (PLAVIX) 75 mg PO QDAY Qty: 90 3RF metoprolol tartrate 25 mg tablet 50 mg PO DAILY 0RF Juice Plus PO 0RF Referrals: Kan Barnes MD [Primary Care Provider] -
== END 2021-08-16 16:33 | disposition home or self-care (01) ==
PROVIDERS: Emergency Provider Emergency Medicine; Family Provider Family Medicine; PCP Family Medicine
DX: S22.31XA Fracture of one rib, right side, initial encounter for closed fracture (principal); W10.9XXA Fall (on) (from) unspecified stairs and steps, initial encounter; Y93.01 Activity, walking, marching and hiking; Y92.814 Boat as the place of occurrence of the external cause
CPT/HCPCS: 71101; 99283

== ENCOUNTER → 2022-04-04 11:59 | Outpatient (CLI) | payer MEDICARE, OTHER, SELFPAY ==
[2022-04-04 13:27] LABS: Basophils Absolute Auto 0 /uL (0-100); Basophils Percent Auto 0.3 % (0-2); Eosinophils Absolute Auto 0 /uL (0-450); Eosinophils Percent Auto 0.3 % (2-4); Hematocrit 36.3 % (36-46); Hemoglobin 12.5 g/dL (12.0-16.0); Lymphocytes Absolute Auto 1400 /uL (1100-4500); Lymphocytes Percent Auto 39.8 % (25-40); Mean Corpuscular HGB Conc 34.5 % (30-36); Mean Corpuscular Hemoglobin 30.2 PG (26-34); Mean Corpuscular Volume 87.7 fL (80-100); Monocytes Absolute Auto 600 /uL (0-900); Monocytes Percent Auto 16.7 % (3-14); Neutrophils Absolute Auto 1500 /uL (1500-7000); Neutrophils Percent Auto 42.9 % (50-75); Platelet Count 87 X10^3/uL (150-400); Red Blood Cell Count 4.14 X10^6/uL (4.0-5.2); Red Cell Distribution Width 14.2 % (11.6-14.8); White Blood Cell Count 3.6 X10^3/uL (4.5-11.0)
[2022-04-04 13:30] LABS: Add Manual Diff / Slide Review SLIDE REVIEW
[2022-04-04 13:44] LABS: BUN Creatinine Ratio 32.8 (6-22); Blood Urea Nitrogen 22 mg/dL (7-17); Calcium 8.9 mg/dL (8.4-10.2); Carbon Dioxide 30 mmol/L (22-32); Chloride 103 mmol/L (98-107); Cholesterol 111 mg/dL (140-199); Estimated Glomerular Filt Rate > 60 mL/min (>60); Glucose 94 mg/dL (80-110); HDL Cholesterol 64 mg/dL (40-60); HEMOLYSIS < 15 (0-50); LDL Cholesterol Calculated 39 mg/dL (<100); Potassium 4.3 mmol/L (3.4-5.1); Sodium 140 mmol/L (137-145); Triglycerides 42 mg/dL (35-150)
[2022-04-04 14:25] LABS: Anisocytosis 1+; Platelet Estimate Decr; RBC Morphology See
== END ==
PROVIDERS: Family Provider Family Medicine; PCP Family Medicine; Referring Provider Internal Medicine Cardiovascular Disease; Visit Provider Internal Medicine Cardiovascular Disease
DX: E78.5 Hyperlipidemia, unspecified (principal); I25.10 Atherosclerotic heart disease of native coronary artery without angina pectoris
CPT/HCPCS: 36415; 80048; 80061; 85025

== ENCOUNTER 2022-04-28 17:36 | Emergency (ER) | payer MEDICARE, OTHER, SELFPAY ==
[2022-04-28] VITALS (9 sets, daily range): BP systolic 162–204; BP diastolic 74–94; PULSE 59–70; RESP 19–33; TEMP 36.6; O2SAT 94–99
--- NOTE | 2022-04-28 18:04 | DI.RAD.S_ITS ---
PROCEDURE: XR CHEST 1V INDICATIONS: chest pain TECHNIQUE: One view of the chest was acquired. COMPARISON: [facility], CR, XR CHEST 1V, 03/30/2018, 21:45. FINDINGS: Surgical changes and devices: None. Lungs and pleura: Lungs are clear. No pleural effusions or pneumothorax. Mediastinum: Mediastinal contours appear normal. Heart size is enlarged. Bones and chest wall: No suspicious bony lesions. Overlying soft tissues appear unremarkable. IMPRESSION: No acute pulmonary process. Dictated by: Kenia Dexter M.D. on 04/28/2022 at 19:36 Approved by: Kenia Dexter M.D. on 04/28/2022 at 19:36
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
[2022-04-28 18:25] LABS: Add Manual Diff / Slide Review NO; Basophils Absolute Auto 0 /uL (0-100); Basophils Percent Auto 0.3 % (0-2); Eosinophils Absolute Auto 0 /uL (0-450); Eosinophils Percent Auto 0.2 % (2-4); Hematocrit 38.3 % (36-46); Lymphocytes Absolute Auto 1700 /uL (1100-4500); Mean Corpuscular HGB Conc 33.8 % (30-36); Mean Corpuscular Hemoglobin 29.8 PG (26-34); Mean Corpuscular Volume 88.1 fL (80-100); Monocytes Absolute Auto 1000 /uL (0-900); Monocytes Percent Auto 19.4 % (3-14); Neutrophils Absolute Auto 2400 /uL (1500-7000); Neutrophils Percent Auto 47.1 % (50-75); Platelet Count 84 X10^3/uL (150-400); Red Blood Cell Count 4.35 X10^6/uL (4.0-5.2); Red Cell Distribution Width 14.7 % (11.6-14.8); White Blood Cell Count 5.1 X10^3/uL (4.5-11.0)
[2022-04-28] MEDS: SODIUM CHLORIDE 0.9% 1,000 ML 150 ML IV (18:25)
[2022-04-28] MEDS: ASPIRIN 81 MG CHEW TAB 324 MG PO (18:25)
[2022-04-28 18:30] LABS: Alanine Aminotransferase 18 IU/L (<35); Albumin 4.4 g/dL (3.5-5.0); Albumin Globulin Ratio 1.4 (1.0-2.8); Alkaline Phosphatase 53 U/L (38-126); Aspartate Aminotransferase 32 IU/L (14-36); BUN Creatinine Ratio 23.9 (6-22); Bilirubin Total 0.5 mg/dL (0.2-1.3); Blood Urea Nitrogen 22 mg/dL (7-17); Calcium 9.4 mg/dL (8.4-10.2); Carbon Dioxide 34 mmol/L (22-32); Chloride 103 mmol/L (98-107); Creatine Kinase 93 U/L (30-135); Estimated Glomerular Filt Rate > 60 mL/min (>60); Globulin 3.2 g/dL (1.7-4.1); Glucose 97 mg/dL (80-110); HEMOLYSIS 17 (0-50); Lipase 62 U/L (23-300); Sodium 141 mmol/L (137-145); Total Protein 7.6 g/dL (6.3-8.2)
[2022-04-28 18:39] LABS: NT-proBNP (BNP-Adult 18+) 505 pg/mL (<125)
[2022-04-28 18:41] LABS: D Dimer 400 ng/ml (<500)
[2022-04-28 18:43] LABS: Troponin I < 0.012 ng/mL (0.01-0.034)
[2022-04-28 18:47] LABS: Procalcitonin < 0.03 ng/mL (<0.5)
--- NOTE | 2022-04-28 19:27 | DI.CT.S_ITS ---
PROCEDURE: CT HEAD/BRAIN WO CON INDICATIONS: fall with head injury on plavix TECHNIQUE: Noncontrast 4.5 mm thick angled axial sections acquired from the foramen magnum to the vertex, with coronal and sagittal reformats. For radiation dose reduction, the following was used: automated exposure control, adjustment of mA and/or kV according to patient size. COMPARISON: None. FINDINGS: Image quality: Excellent. CSF spaces: Basal cisterns are patent. No extra-axial fluid collections. The ventricles are symmetric in size and shape. Brain: No intracranial bleeds or masses. There is cerebral volume loss for age, with resultant ventricular and sulcal prominence. There are periventricular and deep white matter chronic small vessel ischemic changes. There is intracranial internal carotid artery atherosclerosis. Skull and face: Calvarium and visualized facial bones appear intact, without suspicious lesions. Sinuses: Visualized sinuses and mastoids are clear. IMPRESSION: 1. No acute intracranial process. 2. Moderate atrophy and chronic microvascular ischemic changes. Dictated by: Kenia Dexter M.D. on 04/28/2022 at 19:52 Approved by: Kenia Dexter M.D. on 04/28/2022 at 19:53
--- NOTE | 2022-04-28 19:27 | DI.CT.S_ITS ---
PROCEDURE: CT CERVICAL SPINE WO CON INDICATIONS: fall, head injury, pain down R arm TECHNIQUE: Noncontrast 3 mm thick sections acquired from the skull base to the T4 level. Sagittal and coronal reformats were then constructed. For radiation dose reduction, the following was used: automated exposure control, adjustment of mA and/or kV according to patient size. COMPARISON: None. FINDINGS: Image quality: Excellent. Bones: No fractures or dislocations. Visualized superior ribs are intact. Multilevel degenerative changes are present. Soft tissues: Prevertebral soft tissues are normal in thickness. No paravertebral hematomas. No apical pneumothoraces. IMPRESSION: Degenerative changes without visualized fracture. Dictated by: Kenia Dexter M.D. on 04/28/2022 at 19:51 Approved by: Kenia Dexter M.D. on 04/28/2022 at 19:52
[2022-04-28] MEDS: CYCLOBENZAPRINE 10 MG PREPACK 1 BOTTLE MISC (20:44)
[2022-04-28] MEDS: GABAPENTIN 300 MG CAPSULE PO (20:44)
== END 2022-04-28 20:49 | disposition home or self-care (01) ==
PROVIDERS: Emergency Provider Emergency Medicine; Family Provider Family Medicine; PCP Family Medicine
DX: M79.601 Pain in right arm (principal); S09.90XA Unspecified injury of head, initial encounter; W19.XXXA Unspecified fall, initial encounter; Z79.01 Long term (current) use of anticoagulants; I25.2 Old myocardial infarction
CPT/HCPCS: 36415; 70450; 71045; 72125; 80053; 82550; 83690; 83880; 84145; 84484; 85025; 85379; 93005; 93010; 96360; 96361; 99284

== ENCOUNTER → 2023-03-26 09:53 | Outpatient (CLI) | payer OTHER, SELFPAY ==
--- NOTE | 2023-03-26 10:10 | DI.DEXA.S_ITS ---
Bone Density Report Name: DIPTI ALCANTARA Age: 77 Sex: Female Ethnicity: White Date of : 1945 Indication: osteopenia; Referring Provider: DAVINA YAN Study: Bone densitometry was performed. Exam Date: March 26, 2023 Accession number: [id number] Bone Density: Region BMD T-score Z-score Classification AP Spine(L1-L4) 1.056 0.1 2.5 Normal Femoral Neck (Left) 0.682 -1.5 0.6 Osteopenia Total Hip (Left) 0.796 -1.2 0.6 Osteopenia Total Forearm (Left) 0.530 -0.9 1.6 Normal 1/3 Forearm (Left) 0.629 -1.1 1.5 Osteopenia UD Forearm (Left) 0.401 -0.7 1.1 Normal World Health Organization criteria for BMD impression classify patients as: Normal (T-score at or above -1.0), Osteopenia (T-score between -1.0 and -2.5), or Osteoporosis (T-score at or below -2.5). 10-year Fracture Risk(1): Major Osteoporotic Fracture 11% Hip Fracture 2.3% Reported Risk Factors: [place] (), Neck BMD=0.682, BMI=23.2 (1) FRAX(R) Version 3.08. Fracture probability calculated for an untreated patient. Fracture probability may be lower if the patient has received treatment. Previous Exams: -- Region Exam Age BMD T-score BMD Change BMD Change Date g/cm2 vs Baseline vs Previous -- AP Spine (L1-L4) 03/26/2023 77 1.056 0.1 -0.101 (-8.7%)# -0.101 (-8.7%)# 01/12/2021 75 1.157 1.0 Total Hip(Left) 03/26/2023 77 0.796 -1.2 0.053 (7.2%)# 0.053 (7.2%)# 01/12/2021 75 0.743 -1.6 -- *Denotes significance at 95% confidence level, LSC for AP Spine = 0.022 g/cm2, LSC for Total Hip = 0.027 g/cm2 # Denotes dissimilar scan types or analysis methods Impression: The patient has low bone mass, based on the Left Femoral Neck T-score. The patient has an estimated ten-year risk of hip fracture of 2.3% and an estimated ten-year risk of major fracture of 11%, based on the WHO FRAX algorithm. No significant bone loss was observed. Discussion: BONE DENSITY IS LOW AT ONE OR MORE SKELETAL SITES. This patient's lowest T-score is low at one or more skeletal sites. It meets the World Health Organization's (WHO) criteria for ?low bone mass? (T-score between -1.0 and -2.5). The patient's 10-year risk of fracture as calculated by FRAX is less than the threshold where pharmacological therapy is recommended by the National Osteoporosis Foundation (NOF). However, all treatment decisions require clinical judgment and consideration of individual patient factors, including patient preferences, comorbidities, previous drug use, risk factors not captured in the FRAX model (e.g., frailty, falls, vitamin D deficiency, increased bone turnover, interval significant decline in bone density) and possible under or overestimation of fracture risk by FRAX. The patient should follow a healthful lifestyle (good nutrition with adequate calcium and vitamin D, and appropriate weight-bearing exercise). Follow-Up: Consider repeating this study in 2 to 3 years to reassess this patient's status, or sooner if there is some new clinical indication. Reported by: JONATHAN TIWARI M.D. on 03/26/2023 10:22:00 AM.
== END ==
PROVIDERS: Family Provider Family Medicine; PCP Family Medicine; Referring Provider Family Medicine; Visit Provider Family Medicine
DX: Z78.0 Asymptomatic menopausal state (principal); M85.852 Other specified disorders of bone density and structure, left thigh
CPT/HCPCS: 77080; 77081

== ENCOUNTER → 2023-04-23 11:57 | Outpatient (CLI) | payer OTHER, SELFPAY ==
--- NOTE | 2023-04-23 12:01 | DI.RAD.S_ITS ---
PROCEDURE: XR HIP W PEL IF DONE LT 2V INDICATIONS: left hip pain TECHNIQUE: AP pelvis with lateral view(s) of the left hip(s). COMPARISON: None. FINDINGS: Bones: Right total hip arthroplasty. Hardware appears intact without surrounding lucency or fracture. No fractures or dislocations. Moderate osteoarthritic changes of the left hip with joint space narrowing and marginal spurring. Pelvic ring appears intact. No suspicious bony lesions. Degenerative changes of the visualized lower lumbar spine and pubic symphysis. Soft tissues: The visualized bowel gas pattern is normal. No suspicious soft tissue calcifications. Pelvic phleboliths. IMPRESSION: No acute osseous abnormalities. Moderate osteoarthritic changes of the left hip. Status post right hip arthroplasty. Dictated by: Froilan Douglas M.D. on 04/23/2023 at 12:40 Approved by: Froilan Douglas M.D. on 04/23/2023 at 12:41
== END ==
PROVIDERS: Family Provider Family Medicine; PCP Family Medicine; Referring Provider Family Medicine; Visit Provider Family Medicine
DX: M25.552 Pain in left hip (principal); Z96.641 Presence of right artificial hip joint
CPT/HCPCS: 73502